=== PATIENT | female | born 1995 | race Caucasian/White ===

== ENCOUNTER 2021-04-21 22:19 | Emergency (ER) | payer OTHER ==
[2021-04-21 23:06] LABS: BASOPHIL 0.3 % (0-2); EOSINOPHIL 0.1 % (0-5); HCT 42.9 % (37.0-47.0); HGB 15.7 g/dl (12.5-16.0); LYMPHOCYTE 10.8 % (15-48); MCH 32.3 pg (25.0-31.0); MCHC 36.6 g/dL (32.0-36.0); MCV 88.3 fL (78.0-100.0); MPV 10.2 fL (6.0-9.5); NEUTROPHIL 84.4 % (41-80); NRBC 0; PLT 299 K/uL (150-400); RBC 4.86 M/uL (4.20-5.40); WBC 18.9 K/uL (4.0-10.5)
[2021-04-21 23:16] LABS: ALBUMIN 4.4 g/dL (3.4-5.0); BILIRUBIN - TOTAL 0.9 mg/dL (0.2-1.0); BUN/CREAT RATIO (CALC) 16.4 RATIO; CREATININE 0.67 mg/dL (0.51-0.95); GLOBULIN (CALCULATION) 4.5 g/dL; TOTAL PROTEIN 8.9 g/dL (6.4-8.2)
[2021-04-22 00:22] LABS: BILIRUBIN NEGATIVE (NEGATIVE); BLOOD NEGATIVE Ery/uL (NEGATIVE); CLARITY CLEAR (CLEAR); COLOR YELLOW (YELLOW); GLUCOSE (U) NORMAL (NORMAL); LEUKOCYTES TRACE Leu/uL (NEGATIVE); NITRITE NEGATIVE (NEGATIVE); PROTEIN NEGATIVE (NEGATIVE); SPECIFIC GRAVITY 1.015 (1.001-1.030); UROBILINOGEN 0.2 mg/dL (0.2-1.0); pH 7.5 (5.0-9.0)
[2021-04-22 00:29] LABS: BACTERIA TRACE; URINARY RBC RARE; URINARY WBC RARE
[2021-04-22] MEDS ORDERED: ZOFRAN4 M1 PO (01:22)
[2021-04-22 02:07] LABS: CORONAVIRUS 2019 SARS-COV-2 NEGATIVE (NEGATIVE); INFLUENZA A NAA NEGATIVE (NEGATIVE)
== END 2021-04-22 02:20 | disposition home or self-care (01) ==
LOC: FER 22:19
PROVIDERS: Emergency Medicine
DX: K52.9 Noninfective gastroenteritis and colitis, unspecified (principal); F17.290 Nicotine dependence, other tobacco product, uncomplicated; Z88.0 Allergy status to penicillin; Z20.822 Contact with and (suspected) exposure to COVID-19
CPT/HCPCS: 36415; 80053; 81001; 85025; 87040; J2405; J7030; U0002